=== PATIENT | female | born 1995 | race Caucasian/White ===

== ENCOUNTER 2017-10-03 16:52 | Emergency (ER) | payer BC, OTHER ==
[2017-10-03 17:27] VITALS: BP 106/71
--- NOTE | 2017-10-03 17:34 | UC ---
Respiratory Complaint HPI - HPI Summary HPI Summary: C/O URI Sx x 2 weeks, started fevers after 2-3 days with cough productive of green chunky sputum. Sore throat. Some post tussive emesis. - History of Current Complaint Chief Complaint: UCRespiratory Stated Complaint: UPPER RESPIRATORY COMPLAINT Hx Obtained From: Patient Hx Last Menstrual Period: 09/15/17 ?: No Onset/Duration: Sudden Onset, Lasting Weeks - 2, Still Present Severity Initially: Moderate Severity Currently: Moderate Pain Intensity: 0 Character: Cough: Productive Associated Signs And Symptoms: Positive: Dyspnea, Fever, Chills, Wheezing, URI, Nasal Congestion, Hoarseness, Sinus Discomfort. Negative: Hemoptysis Related History: Seasonal Allergies - Allergies/Home Medications Allergies/Adverse Reactions: Allergies Allergy/AdvReac Type Severity Reaction Status Date / Time Penicillins Allergy Unknown Trouble Verified 10/03/17 17:17 breathing and oral and vaginal yeast infection Home Medications: Home Medications Acetaminophen [Extra Strength Non-Aspirin] 500 mg PO PRN 10/03/17 [History] PMH/Surg Hx/FS Hx/Imm Hx - Additional Past Medical History Additional PMH: Anemia with menorrhagia - Surgical History Surgical History: None - Family History Known Family History: Positive: Diabetes - Social History Occupation: Employed Full-time Lives: With Family - with Fiance Alcohol Use: None Substance Use Type: None Smoking Status (MU): Never Smoked Tobacco Have You Smoked in the Last Year: No Review of Systems Constitutional: Fever, Chills ENT: Sore Throat, Ear Ache, Nasal Discharge, Sinus Congestion Respiratory: Shortness Of Breath, Cough Neurological: Headache Is Patient Immunocompromised?: No All Other Systems Reviewed And Are Negative: Yes Physical Exam Triage Information Reviewed: Yes Appearance: No Pain Distress, Well-Nourished, Ill-Appearing Vital Signs: Initial Vital Signs Temp 99.1 F 10/03/17 17:18 Pulse 100 10/03/17 17:18 Resp 20 10/03/17 17:18 BP 106/71 10/03/17 17:18 Pulse Ox 100 10/03/17 17:18 Vital Signs Reviewed: Yes Eyes: Positive: Conjunctiva Clear ENT: Positive: Pharyngeal erythema - with petechia, Nasal congestion Neck exam: Normal Respiratory: Positive: Wheezing - expiratory wheeze with coughing. Cardiovascular Exam: Normal Musculoskeletal Exam: Normal Neurological Exam: Normal Psychological Exam: Normal Skin Exam: Normal UC Diagnostic Evaluation - Laboratory O2 Sat by Pulse Oximetry: 100 Respiratory Course/Dx - Differential Dx/Diagnosis Differential Diagnosis/HQI/PQRI: Asthma, Lower Resp Infection, Sinusitis Provider Diagnoses: Acute URI. Acute bronchospasm. Allergic rhinitis Discharge - Sign-Out/Discharge Documenting (check all that apply): Discharge - Discharge Plan Condition: Stable Disposition: HOME Prescriptions: Albuterol HFA INHALER* [Ventolin HFA Inhaler*] 2 puff INH Q4H PRN #1 mdi PRN Reason: Wheezing predniSONE TAB* [Deltasone TAB*] 20 mg PO DAILY #18 tab Patient Education Materials: Upper Respiratory Infection (ED), Bronchospasm (ED ), Prednisone (By mouth), How to Use a Metered-Dose Inhaler (ED) Referrals: Maritza Sosa MD [Primary Care Provider] - Additional Instructions: NEILMED SINUS RINSE: CHECK OUT AT [facility] [employer] Saline nasal wash helps with mucous, allergies and congestion. It can be used up to twice a day or only as needed. Use lukewarm tap water. It does not have to be sterilized or distilled water. Do 1/3 on each side and snort out of both nostrils. Repeat the process with 1/6 of the bottle on each side with snorting in between to finish the solution in the bottle Do the sinus rinse daily until you can pop your ears. - Billing Disposition and Condition Condition: STABLE Disposition: HOME
== END 2017-10-03 18:10 | disposition home or self-care (01) ==
LOC: UCCORT 16:52
DX: J06.9 Acute upper respiratory infection, unspecified (principal); J98.01 Acute bronchospasm; J30.9 Allergic rhinitis, unspecified; Z88.0 Allergy status to penicillin
CPT/HCPCS: 87651; 99212; G0463

== ENCOUNTER 2017-12-26 09:09 | Emergency (ER) | payer MEDICAID, OTHER ==
[2017-12-26 10:06] VITALS: BP 108/63
--- NOTE | 2017-12-26 10:30 | ED ---
GI/ HPI - HPI Summary HPI Summary: 22 yr old female with the complaint of dysuria, frequency of urination. Onset of symptoms about a month ago. She states she is 15 weeks . She is under the care of Dr Camacho her OB. She denies fever, chills, back pain, bloody show, discharge. This is her first . - History of Current Complaint Chief Complaint: UCGU Time Seen by Provider: 12/26/17 10:15 Stated Complaint: URINARY Hx Last Menstrual Period: 09/15/17 Pain Intensity: 0 - Allergy/Home Medications Allergies/Adverse Reactions: Allergies Allergy/AdvReac Type Severity Reaction Status Date / Time Penicillins AdvReac Unknown Yeast Verified 12/26/17 10:06 Infection Home Medications: Home Medications Vitamin TAB* 1 tab PO DAILY 12/26/17 [History Confirmed 12/26/17] PMH/Surg Hx/FS Hx/Imm Hx Infectious Disease History: No Infectious Disease History: Denies: Traveled Outside the [place] in Last 30 Days - Family History Known Family History: Positive: Diabetes - Social History Alcohol Use: None Substance Use Type: Reports: None Smoking Status (MU): Never Smoked Tobacco Have You Smoked in the Last Year: No Review of Systems Constitutional: Negative Positive: dysuria. Negative: discharge All Other Systems Reviewed And Are Negative: Yes Physical Exam Triage Information Reviewed: Yes Vital Signs On Initial Exam: Initial Vitals Temp Pulse Resp BP Pulse Ox 98.2 F 86 16 108/63 100 12/26/17 09:59 12/26/17 09:59 12/26/17 09:59 12/26/17 09:59 12/26/17 09:59 Vital Signs Reviewed: Yes Appearance: Positive: Well-Appearing, No Pain Distress Skin: Positive: Warm Head/Face: Positive: Normal Head/Face Inspection Eyes: Positive: EOMI ENT: Positive: Normal ENT inspection Respiratory/Lung Sounds: Positive: Clear to Auscultation, Breath Sounds Present Cardiovascular: Positive: RRR. Negative: Murmur Abdomen Description: Positive: Nontender. Negative: CVA Tenderness (R), CVA Tenderness (L), Distended Musculoskeletal: Positive: Strength/ROM Intact Neurological: Positive: Sensory/Motor Intact, Alert, Oriented to Person Place, Time, CN Intact II-III Psychiatric: Positive: Normal - Yaritza Coma Scale Best Eye Response: 4 - Spontaneous Best Motor Response: 6 - Obeys Commands Best Verbal Response: 5 - Oriented Coma Scale Total: 15 Diagnostics - Vital Signs Vital Signs Temp Pulse Resp BP Pulse Ox 12/26/17 09:59 98.2 F 86 16 108/63 100 - Laboratory Lab Results: Lab Results 12/26/17 Range/Units 10:19 POC Urine Color Dark yellow POC Urine Clarity Slightly cloudy POC Urine pH 6.0 (5-9) POC Ur Specif [place] 1.025 (1.010-1.030) POC Urine Protein 1+ A (Negative) POC Ur Glucose (UA) Negative (Negative) POC Urine Ketones Trace A (Negative) POC Urine Blood Negative (Negative) POC Urine Nitrite Negative (Negative) POC Urine Bilirubin 1+ A (Negative) POC Urine Urobilinogen 1.0 (Negative) POC U Leukocyte Esteras Trace A (Negative) Lab Statement: Any lab studies that have been ordered have been reviewed, and results considered in the medical decision making process. GIGU Course/Dx - Course Course Of Treatment: 22 yr old with urinary symptoms, urine positive. Will Rx with macrobid. 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 - Diagnoses Provider Diagnoses: UTI (urinary tract infection) Discharge - Sign-Out/Discharge Documenting (check all that apply): Discharge/Admit/Transfer - Discharge Plan Condition: Good Disposition: HOME Prescriptions: Nitrofurantoin Monohyd/M-Cryst [Macrobid 100 mg Capsule] 100 mg PO BID #14 cap Referrals: Maritza Sosa MD [Primary Care Provider] - 2 Days Rose Camacho MD [Medical Doctor] - 3 Days - Billing Disposition and Condition Condition: GOOD Disposition: Home
== END 2017-12-26 10:43 | disposition home or self-care (01) ==
LOC: UCCORT 09:09
DX: O23.42 Unspecified infection of urinary tract in pregnancy, second trimester (principal); Z3A.15 15 weeks gestation of pregnancy; Z88.0 Allergy status to penicillin
CPT/HCPCS: 81003; 84702; 87086; 99212; G0463

== ENCOUNTER 2018-07-19 08:53 | Emergency (ER) | payer MEDICAID, OTHER ==
[2018-07-19 09:26] VITALS: BP 132/75
--- NOTE | 2018-07-19 10:11 | UC ---
Respiratory Complaint HPI - HPI Summary HPI Summary: 2-3 days of cough, congestion, sore throat and sneezing. This morning developed green nasal discharge. No fever, nausea/vomiting. - History of Current Complaint Chief Complaint: UCGeneralIllness Stated Complaint: COUGH,EAR COMPLAINT,RN Time Seen by Provider: 07/19/18 09:30 Hx Obtained From: Patient Hx Last Menstrual Period: 09/15/17 Onset/Duration: Gradual Onset, Lasting Days, Still Present Timing: Constant Severity Initially: Mild Severity Currently: Mild Pain Intensity: 0 Pain Scale Used: 0-10 Numeric Character: Cough: Nonproductive Aggravating Factors: Other Alleviating Factors: Nothing Associated Signs And Symptoms: Positive: URI, Nasal Congestion. Negative: Dyspnea, Fever, Chills, Wheezing - Allergies/Home Medications Allergies/Adverse Reactions: Allergies Allergy/AdvReac Type Severity Reaction Status Date / Time Penicillins AdvReac Unknown Yeast Verified 07/19/18 09:26 Infection Home Medications: Home Medications NK [No Home Medications Reported] 07/19/18 [History Confirmed 07/19/18] PMH/Surg Hx/FS Hx/Imm Hx Previously Healthy: Yes - Surgical History Surgical History: None - Family History Known Family History: Positive: Diabetes - Social History Alcohol Use: None Substance Use Type: None Smoking Status (MU): Never Smoked Tobacco Have You Smoked in the Last Year: No Review of Systems All Other Systems Reviewed And Are Negative: Yes Constitutional: Positive: Negative ENT: Positive: Sore Throat, Nasal Discharge Respiratory: Positive: Cough Cardiovascular: Positive: Negative Gastrointestinal: Positive: Negative Physical Exam Triage Information Reviewed: Yes Appearance: Well-Appearing, No Pain Distress, Well-Nourished Vital Signs: Initial Vital Signs Temp 97.2 F 07/19/18 09:23 Pulse 81 07/19/18 09:23 Resp 18 07/19/18 09:23 BP 132/75 07/19/18 09:23 Pulse Ox 99 07/19/18 09:23 Vital Signs Reviewed: Yes Eyes: Positive: Conjunctiva Clear ENT: Positive: Hearing grossly normal, Pharynx normal, TMs normal Neck: Positive: Supple, Nontender, No Lymphadenopathy Respiratory Exam: Normal Cardiovascular Exam: Normal Abdomen Description: Positive: Soft Musculoskeletal: Positive: No Edema Neurological: Positive: Alert Psychological: Positive: Age Appropriate Behavior Skin: Negative: Rashes UC Diagnostic Evaluation - Laboratory O2 Sat by Pulse Oximetry: 99 Respiratory Course/Dx - Differential Dx/Diagnosis Provider Diagnosis: Acute URI Discharge - Sign-Out/Discharge Documenting (check all that apply): Patient Departure All imaging exams completed and their final reports reviewed: No Studies - Discharge Plan Condition: Stable Disposition: HOME Patient Education Materials: Upper Respiratory Infection (ED) Referrals: María Ferro MD [Primary Care Provider] - If Needed Additional Instructions: YOUR SYMPTOMS ARE LIKELY VIRALLY MEDIATED AND SHOULD RESOLVE ON THEIR OWN WITH TIME. NO INDICATION FOR ANTIBIOTICS AT PRESENT. REST, HYDRATE, OTC MEDS NEEDED. SEEK FOLLOW-UP IF YOU ARE NOT IMPROVING OVER THE NEXT 1-2 WEEKS. - Billing Disposition and Condition Condition: STABLE Disposition: Home
== END 2018-07-19 10:03 | disposition home or self-care (01) ==
LOC: UCCORT 08:53
DX: J06.9 Acute upper respiratory infection, unspecified (principal); Z88.0 Allergy status to penicillin
CPT/HCPCS: 99211; G0463

== ENCOUNTER 2019-06-07 12:24 | Emergency (ER) | payer OTHER ==
--- NOTE | 2019-06-07 12:28 | UC ---
Throat Pain/Nasal Ash HPI - HPI Summary HPI Summary: 24 yo female presents with sore throat. She tells me that for the past 2 days she has had a sore throat, sinus pain/pressure/congestion, and fatigue. She has not taken anything OTC for her symptoms. She is eating, drinking, and tolerating po well. She denies fever, chills, cough, rash, abdominal pain, n/v - History of Current Complaint Stated Complaint: SORE THROAT EARS SNEEZING Time Seen by Provider: 06/07/19 12:28 Hx Obtained From: Patient Hx Last Menstrual Period: NEXPLANON Onset/Duration: Sudden Onset Severity: Moderate Pain Intensity: 6 Pain Scale Used: 0-10 Numeric - Allergies/Home Medications Allergies/Adverse Reactions: Allergies Allergy/AdvReac Type Severity Reaction Status Date / Time No Known Allergies Allergy Verified 06/07/19 12:39 PMH/Surg Hx/FS Hx/Imm Hx - Additional Past Medical History Additional PMH: None - Surgical History Surgical History: None - Family History Known Family History: Positive: Diabetes - Social History Occupation: Student Lives: With Family Alcohol Use: Occasionally Substance Use Type: None Smoking Status (MU): Never Smoked Tobacco Have You Smoked in the Last Year: No Review of Systems All Other Systems Reviewed And Are Negative: No Constitutional: Positive: Negative Skin: Positive: Negative ENT: Positive: Sore Throat, Ear Ache, Sinus Congestion, Sinus Pain/Tenderness Respiratory: Positive: Negative Cardiovascular: Positive: Negative Gastrointestinal: Positive: Negative Neurological: Positive: Negative Psychological: Positive: Negative Physical Exam - Summary Physical Exam Summary: GENERAL: NAD. WDWN. No pain distress. SKIN: No rashes, sores, lesions, or open wounds. HEENT: Head: AT/NC Eyes: EOM intact. Conjunctiva clear without inflammation or discharge. Ears: Hearing grossly normal. TMs intact, no bulging, erythema, or edema. Nose: Nasal mucosa pink and moist. NTTP maxillary and frontal sinus. Throat: Posterior oropharynx with mild erythema and 2+ tonsillar enlargement. No exudates. Uvula midline. NECK: Supple. Nontender. No lymphadenopathy. CHEST: CTAB. No accessory muscle use. Breathing comfortably and in no distress. CV: RRR. Pulses intact. Cap refill <2seconds NEURO: Alert. PSYCH: Age appropriate behavior. Triage Information Reviewed: Yes Vital Signs: Vital Signs: Temp Pulse Resp BP Pulse Ox 98.7 F 100 16 112/70 100 06/07/19 12:36 06/07/19 12:36 06/07/19 12:36 06/07/19 12:36 06/07/19 12:36 Laboratory Tests 06/07/19 12:50 Group A Strep Rapid Negative Vital Signs Reviewed: Yes Throat Pain/Nasal Course/Dx - Course Course Of Treatment: POC strep test negative. Suspect viral illness - Differential Dx/Diagnosis Provider Diagnosis: Pharyngitis Discharge ED - Sign-Out/Discharge Documenting (check all that apply): Patient Departure All imaging exams completed and their final reports reviewed: No Studies - Discharge Plan Condition: Stable Disposition: HOME Patient Education Materials: Pharyngitis (ED), Viral Syndrome (ED) Forms: *Work Release Referrals: María Ferro MD [Primary Care Provider] - Additional Instructions: Your strep test was negative today. Your symptoms are likely from a viral infection. Viral infections do not respond to antibiotics and are limited to the treatment of symptoms. Viral infections typically run their course in 7-10 days. Drink plenty of fluids, especially if you are running any fever. Use salt water gargles several times a day. Take over the counter acetaminophen (Tylenol) or ibuprofen (Advil, Motrin) according to directions as needed for pain or fever. You may also use Chloraseptic spray or Cepacol lonzenges according to directions which contain a numbing medication and can provide some temporary relief from a sore throat. Return here or follow up with your primary care provider in 7 days if symptoms persist. - Billing Disposition and Condition Condition: STABLE Disposition: Home
[2019-06-07 12:39] VITALS: BP 112/70
== END 2019-06-07 13:00 | disposition home or self-care (01) ==
LOC: UCCORT 12:24
DX: J02.9 Acute pharyngitis, unspecified (principal); R09.81 Nasal congestion; H92.09 Otalgia, unspecified ear
CPT/HCPCS: 87651; 99211; G0463